=== PATIENT | male | born 1985 | race Caucasian/White ===

== ENCOUNTER 2016-08-12 04:20 | Emergency (ER) | payer BC ==
[~2016-08-12] VITALS: Ht 160 cm; Wt 66.3 kg
[2016-08-12 06:23] LABS: HEMATOCRIT 45.6 % (38.0-50.0); MCH 29.2 PG (29.0-34.0); MCHC 32.7 G/DL (30.0-36.0); MCV 89.4 FL (86-99); MEAN PLAT.VOLUME 10.3 uM^3 (9.0-12.4); PLATELET COUNT 194 K/uL (156-360); RBC DIS.WIDTH-CV 13.2 % (11.8-14.6); RBC DIS.WIDTH-SD 43.6 % (39-53); WHITE BLOOD COUNT 10.4 K/uL (4.1-10.2)
[2016-08-12 06:37] LABS: INTER. NORMALIZED RATIO 1.5; PROTHROMBIN TIME 15.8 (9.2-11.2); PTT 32.9 (25-32)
[2016-08-12 07:33] VITALS: BP 142/67
== END 2016-08-12 07:34 | disposition home or self-care (01) ==
LOC: EME 04:20
PROVIDERS: Emergency Medicine
PROC: 2Y41X5Z Packing of Nasal Region using Packing Material (ICD-10-PCS; principal; 2016-08-12)
DX: J95.860 Postprocedural hematoma of a respiratory system organ or structure following a respiratory system procedure (principal); R04.0 Epistaxis; Z98.890 Other specified postprocedural states; Z98.61 Coronary angioplasty status; Z95.2 Presence of prosthetic heart valve; Z79.01 Long term (current) use of anticoagulants
CPT/HCPCS: 85027; 85610; 85730; 99281; 99284